=== PATIENT | female | born 1960 | race Caucasian/White ===

== ENCOUNTER → 2017-01-08 | Outpatient (CLI) | payer MEDICARE, OTHER ==
--- NOTE | 2017-01-10 11:50 | KCIC ---
DATE: 01/08/2017 EXAM: MAMMO DARLENE SCREENING BILATERAL HISTORY: 56-year-old with history of right and left breast biopsies with benign pathology. Also history of breast reduction. COMPARISON: 2016 and 2014 mammograms. FINDINGS: Breast Density: SCATTERED The breast parenchyma shows scattered fibroglandular densities. Breast parenchyma level B. Benign bilateral calcifications. There is a 1.4 x 0.9 cm oval-shaped isodense mass within anterior third of the left breast approximately 3 cm from the nipple only seen on MLO view. There is another oval-shaped lesion measuring 0.7 cm with circumscribed margins just medial to the nipple approximately 2.8 cm from the nipple on cc view. On 3- D views this appears to be centered within mammary duct. No suspicious calcifications, spiculated mass or architectural distortion. 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 However, further workup with spot compression and ultrasound recommended. BI-RADS CATEGORY: 0 INCOMPLETE: NEED ADDITIONAL IMAGING EVAULATION AND/OR PRIOR MAMMOGRAMS FOR COMPARISON RECOMMENDED FOLLOW-UP: PQRS compliance statement: Patient information was entered into a reminder system with a target due date for the next mammogram. Mammography is a sensitive method for finding small breast cancers, but it does not detect them all and is not a substitute for careful clinical examination. A negative mammogram does not negate a clinically suspicious finding and should not result in delay in biopsying a clinically suspicious abnormality. MTDD
== END | disposition home or self-care (01) ==
LOC: KCIC MAMMO 08:25
PROVIDERS: ATTEND Obstetrics & Gynecology
DX: Z12.31 Encounter for screening mammogram for malignant neoplasm of breast (principal)
CPT/HCPCS: 77063; G0202; 77067

== ENCOUNTER → 2017-01-25 | Outpatient (CLI) | payer MEDICARE, OTHER ==
--- NOTE | 2017-01-25 10:32 | RAD ---
DATE: 01/25/2017 EXAM: DIGITAL DIAGNOSTIC LT, BREAST LEFT HISTORY: Callback for mass in the left breast. COMPARISON: Mammogram from 01/08/2017, 01/02/2016 and 09/09/2014 This study was interpreted with the benefit of Computerized Aided Detection (CAD). The breast parenchyma is primarily fatty replaced. Breast parenchyma level density A. FINDINGS: Diagnostic spot compression CC and MLO views of the left breast were obtained. Additionally, targeted ultrasound at the 3:00 position and 3:30 position of the left breast 3 cm from the nipple was performed. There is a partly circumscribed mass in the left breast at the 3:00 position, which is partially obscured. The mass is isodense to low density. Targeted ultrasound at 3:00 position, 3 cm from the nipple demonstrates a 9 mm predominantly hyperechoic mass with thin hypoechoic rim favored to represent an intramammary lymph node. No suspicious features are identified. No evidence of architectural distortion. Normal fibroglandular density is noted at the 3:30 position in the left breast. IMPRESSION: 1. Left breast abnormality identified on prior examination is felt to represent an intramammary lymph node compatible with probably benign findings. Follow-up mammographic and sonographic evaluation in 6 months is recommended. BI-RADS CATEGORY: 3 PROBABLY BENIGN FINDING(S)-SHORT INTERVAL FOLLOW-UP SUGGESTED RECOMMENDED FOLLOW-UP: 6M 6 MONTH FOLLOW-UP PQRS compliance statement: Mammography is a sensitive method for finding small breast cancers, but it does not detect them all and is not a substitute for careful clinical examination. A negative mammogram does not negate a clinically suspicious finding and should not result in delay in biopsying a clinically suspicious abnormality. "Our facility is accredited by the [employer] Mammography [employer]."
== END | disposition home or self-care (01) ==
LOC: KCIC MAMMO 08:51
PROVIDERS: ATTEND Obstetrics & Gynecology
DX: N63 Unspecified lump in breast (principal)
CPT/HCPCS: 76641; G0206; 77065

== ENCOUNTER → 2017-06-24 | Outpatient (CLI) | payer MEDICARE, OTHER | END | disposition home or self-care (01) | LOC: KCIC MAMMO 12:31 | DX: R92.8 Other abnormal and inconclusive findings on diagnostic imaging of breast (principal) | CPT/HCPCS: 76641; 77065; G0279 ==

== ENCOUNTER → 2018-02-26 | Outpatient (CLI) | payer MEDICARE, OTHER ==
--- NOTE | 2018-02-26 11:11 | KCIC ---
EXAM: Bilateral digital diagnostic mammogram with tomosynthesis; left breast sonogram. HISTORY: 57-year-old female presents for 6 month follow-up evaluation of suspected benign lesions within the left breast demonstrated on prior sonograms. The patient is due for bilateral mammography. TECHNIQUE: Full-field digital craniocaudal and mediolateral oblique 2D and 3D tomosynthesis images of both breasts are obtained for evaluation. Computer aided detection with [employer] software version 9.3 was applied. Sonographic imaging of the left breast targeted to the 7:00 and 9:00 positions was also performed. COMPARISON: Mammograms and sonograms dated 06/24/2017 and 01/25/2018. BREAST PARENCHYMAL DENSITY: Level B - Scattered fibroglandular densities. FINDINGS: There is no new suspicious mass, microcalcification or region of architectural distortion. There are stable areas of nodularity within both breasts, including at the 9:00 position of the left breast. Sonographic imaging of the left breast demonstrates a slightly complex cyst with internal echoes at the 9:00 position 3 cm from the nipple measuring 9.3 mm. This is not significantly changed compared to prior studies. There is a stable circumscribed nonvascular lesion isoechoic to fat within the superficial soft tissues of the left breast at the 7:00 position 6.5 cm from the nipple measuring 2.1 cm. No new sonographic lesion is seen. IMPRESSION: 1. Stable benign complicated cyst at the 9:00 position and suspected lipoma at the 7:00 position of the left breast. 2. No new suspicious mammographic or sonographic finding. 3. BI-RADS Category 2: Benign finding(s). RECOMMENDATION: Annual mammography is recommended. If your mammogram demonstrates that you have dense breast tissue, which could hide abnormalities, and if you have other risk factors for breast cancer that have been identified, you might benefit from supplemental screening tests that may be suggested by your ordering physician. Dense breast tissue, in and of itself, is a relatively common condition. This information is not provided to cause undue concern, but rather to raise your awareness and to promote discussion with your physician regarding the presence of other risk factors, in addition to dense breast tissue. A report of your mammography results will be sent to you and your physician. You should contact your physician if you have any questions or concerns regarding this report. Mammography is a sensitive method for finding small breast cancers, but it does not detect them all and is not a substitute for careful clinical examination. A negative mammogram does not negate a clinically suspicious finding and should not result in delay in biopsying a clinically suspicious abnormality. PQRS compliance statement - Patient information was entered into a reminder system with a target due date for the next mammogram. "Our facility is accredited by the [employer] Mammography [employer]." Electronically signed by: Moni Chacon MD (02/26/2018 11:07 AM) [id number]
== END | disposition home or self-care (01) ==
LOC: KCIC MAMMO 09:38
PROVIDERS: ATTEND Obstetrics & Gynecology
DX: N60.02 Solitary cyst of left breast (principal); R92.2 Inconclusive mammogram
CPT/HCPCS: 76641; 77066; G0279; 77062